=== PATIENT | male | born 1990 | race Caucasian/White ===

== ENCOUNTER 2018-06-22 05:26 | Day surgery (SDC) | payer OTHER ==
[2018-06-22] VITALS (9 sets, daily range): BP systolic 109–127; BP diastolic 59–82; PULSE 56–70; RESP 14–27; Ht 170.2 cm; Wt 73.2 kg
[~2018-06-22] VITALS: Ht 170.2 cm; Wt 73.2 kg
[2018-06-22] MEDS ORDERED: SOD CHLORIDE 0.9% 1,000 ML IV ONE (05:30)
[2018-06-22] MEDS ORDERED: CEFAZOLIN 2 GM/50 ML (PMX) 50 ML IVPB ONE (05:30)
[2018-06-22] MEDS ORDERED: CEFAZOLIN 1 GM INJ ONE (07:00)
[2018-06-22] MEDS ORDERED: LIDOCAINE 2% (MDV) 20 ML INJ ONE (07:18)
[2018-06-22] MEDS ORDERED: BUPIVACAINE 0.5% (SDV) 30 ML INJ ONE (07:18)
--- NOTE | 2018-06-22 07:23 | PREAC ---
Date/Time of Note Date/Time of Note DATE: 06/22/18 TIME: 07:22 Anesthesia Eval and Record Evaluation Time Pre-Procedure Interview DATE: 06/22/18 TIME: 07:22 Age 28 Sex male NPO: 8 hrs Preoperative diagnosis LEFT FOREARM MASS Planned procedure EXCISION LEFT FOREARM MASS Past Medical History Past Medical History: None Surgery & Anesthesia Issues No known issue Meds Anticoagulation: No Beta Conchis within 24 hr: No Reason Beta Conchis not given: Pt. not on B-Conchis No Active Prescriptions or Reported Meds Current Medications Sodium Chloride 1,000 ml @ 75 mls/hr [id number] ONCE IV ; Start 06/22/18 at 05:30; Stop 06/22/18 at 18:49 Meds reviewed: Yes Allergies Coded Allergies: No Known Allergy (Unverified , 06/22/18) Allergies Reviewed: Yes Labs/Studies Labs Reviewed: Reviewed by anesthesiologist test: N/A Pre-procedure Exam Last vitals Vital Signs Date Temp Pulse Resp B/P (MAP) Pulse Ox O2 O2 Flow FiO2 Time Delivery Rate 06/22/18 97.5 57 18 109/68 98 Room Air 06:46 (82) Airway: Adequate mouth opening, Adequate thyromental dist Mallampati: Mallampati II Teeth: Normal Lung: Normal Heart: Normal ASA Physical Status ASA physical status: 1 Emergency: None Planned Anesthetic General/MAC: MAC Planned Pain Management Parenteral pain med Pre-operative Attestations Prior to commencing anesthesia and surgery, the patient was re-evaluated, there was verification of: *The patient's identity *The results of appropriate recent lab work and preoperative vital signs *The above evaluation not changing prior to induction *Anesthetic plan, risk benefits, alternative and complications discussed with patient/family; questions answered; patient/family understands, accepts and wishes to proceed. Timothy Eden M.D. Jun 22, 2018 07:23
[2018-06-22] MEDS ORDERED: OXYCODONE/ACETAMINOPHEN (5/325) TAB PO PRN ×2 (07:30)
[2018-06-22] MEDS ORDERED: TRIMETHOBENZAMIDE 100 MG/ML VIAL IM PRN (07:30)
[2018-06-22] MEDS ORDERED: hydrALAzine 20 MG INJ IV PRN (07:30)
[2018-06-22] MEDS ORDERED: EPHEDrine SULFATE 50 MG/5 ML SYG IV PRN (07:30)
[2018-06-22] MEDS ORDERED: IPRATROPIUM (NEB) 0.5 MG/2.5 ML AMP HHN PRN (07:30)
[2018-06-22] MEDS ORDERED: MEPERIDINE 25 MG INJ IV PRN (07:30)
[2018-06-22] MEDS ORDERED: FENTAnyl 50 MCG/ML VIAL IV PRN ×3 (07:30)
[2018-06-22] MEDS ORDERED: HYDROmorphONE 1 MG/5 ML IV SYRINGE IV PRN ×3 (07:30)
[2018-06-22] MEDS ORDERED: MIDAZOLAM 1 MG/ML 2 ML INJ IV PRN (07:30)
[2018-06-22] MEDS ORDERED: DIPHENHYDRAMINE 50 MG INJ IV PRN (07:30)
[2018-06-22] MEDS ORDERED: ONDANSETRON 4 MG INJ IV PRN (07:30)
[2018-06-22] MEDS ORDERED: ALBUTEROL 0.083% (NEB) 2.5 MG/3 ML AMP HHN PRN (07:30)
[2018-06-22] MEDS ORDERED: LABETALOL HCL 20MG INJ IV PRN (07:30)
[2018-06-22] MEDS ORDERED: PROPOFOL 20 ML ONE (07:35)
[2018-06-22] MEDS ORDERED: LIDOCAINE 100 MG SYRINGE ONE (07:35)
[2018-06-22] MEDS ORDERED: FENTAnyl 50 MCG/ML VIAL ONE (07:35)
[2018-06-22] MEDS ORDERED: MIDAZOLAM 1 MG/ML 2 ML INJ ONE (07:38)
[2018-06-22] MEDS ORDERED: HYDROCODONE/APAP (5/325) TAB PO ONE (08:00)
--- NOTE | 2018-06-22 08:04 | OPR ---
Date/Time of Note Date/Time of Note DATE: 06/22/18 TIME: 08:01 Operative Report Procedure Date: Jun 22, 2018 Preoperative Diagnosis left forearm mass Postoperative Diagnosis same Operation/Procedure Performed 1. excision of left forearm mass 3 cm mass 3 cm incision 2. localized adjacent tissue transfer with the use of skin flaps 6 sq cm defect left forearm 3. therapeutic injection of subcutaneous local anesthesia Surgeon see signature line [employer]itness Instructor none Anesthesia Type: MAC Estimated Blood Loss: 0 - 10 ml's Transfusion none Specimen left forearm mass Grafts/Implants none Complications none Pt Condition Post Procedure: stable Indications This is a 28-year-old male with a left forearm mass. He requests surgical excision due to pain and symptoms. Risks alternatives benefits of present were discussed with patient. In particular potential complications including but not limited to bleeding infection recurrence of the mass wound dehiscence were discussed the patient. Patient expresses understanding and consents to the operation. Procedure Description Patient is into the OR prepped and draped in usual sterile fashion. Surgical time was performed. IV antibiotics given. subcutaneous therapeutic local anesthesia is injected throughout the incision site. Elliptical incision was made with a 15 blade over the mass in the skin. Cautery was used to excise the mass completely. Good hemostasis status. Due to tissue defect localized patient's history is limited to skin passes performed. Multilayer closure with interrupted 0 Vicryl and skin vinicio. Dry dressings were applied. Ann MALDONADO Jun 22, 2018 08:04
--- NOTE | 2018-06-22 08:14 | PAC ---
Date/Time of Note Date/Time of Note DATE: 06/22/18 TIME: 08:14 Post-Anesthesia Notes Post-Anesthesia Note Last documented vital signs Vital Signs Date Temp Pulse Resp B/P (MAP) Pulse Ox O2 O2 Flow FiO2 Time Delivery Rate 06/22/18 97.5 57 18 109/68 98 Room Air 08:14 (82) Activity: WNL Respiratory function: WNL Cardiovascular function: WNL Mental status: Baseline Pain reasonably controlled: Yes Hydration appropriate: Yes Nausea/Vomiting absent: Yes Timothy Eden M.D. Jun 22, 2018 08:14
== END 2018-06-22 09:25 | disposition home or self-care (01) ==
LOC: SDS 05:26
PROVIDERS: ATTEND Surgery
DX: L72.0 Epidermal cyst (principal)
CPT/HCPCS: 14020; 88307; J0690; J2001; J2250; J3010; Z7512; Z7610